=== PATIENT | male | born 1975 | race Caucasian/White ===

== ENCOUNTER 2024-03-07 17:43 | Inpatient (IN) | payer OTHER ==
[~2024-03-07] VITALS: Ht 177.8 cm; Wt 71.4 kg
[2024-03-08] MEDS ORDERED: Haloperidol Lactate Inj. 5 MG/ML Injection IM PRN (11:20)
[2024-03-08] MEDS ORDERED: Haloperidol 5 MG Tab PO PRN (11:20)
[2024-03-08] MEDS ORDERED: HydrOXYzine Pamoate 50 MG Cap PO PRN (11:20)
[2024-03-08] MEDS ORDERED: Ondansetron 4 MG SoluTab MM PRN (11:25)
[2024-03-08] MEDS ORDERED: Aluminum Hydroxide 320MG/5ML 473 ML PO PRN (11:25)
[2024-03-08] MEDS ORDERED: Ibuprofen 600 MG Tab PO PRN (11:25)
[2024-03-08] MEDS ORDERED: LORazepam 2 MG Tab PO PRN (11:25)
[2024-03-08] MEDS ORDERED: FLU VACC TS2024-25(6MOS UP)/PF 45 MCG/0.5 ML SYRINGE IM ONE (11:25)
[2024-03-08] MEDS ORDERED: LORazepam 2 MG/ML 1ML Injection IM PRN (11:25)
[2024-03-08] MEDS ORDERED: OLANZapine ODT 10 MG Tab MM PRN (11:25)
[2024-03-08] MEDS ORDERED: Polyethylene Glycol 3350 17 gm PO PRN (11:30)
[2024-03-08] MEDS ORDERED: DiphenhydrAMINE HCl 50 MG/ML 1ML Vial IV PRN (11:30)
[2024-03-08] MEDS ORDERED: DiphenhydrAMINE HCl 50 MG Cap PO PRN (11:30)
[2024-03-08] MEDS ORDERED: TraZODone HCl 50 MG Tab PO PRN (11:30)
[2024-03-08] MEDS ORDERED: Melatonin 3 MG Tab PO PRN (11:30)
[2024-03-08] MEDS ORDERED: Acetaminophen 325 MG TABLET PO PRN (11:30)
[2024-03-08] MEDS ORDERED: Calcium Carbonate 500 MG Tab Chew PO PRN (11:30)
[2024-03-08] MEDS ORDERED: AMLO5 PO (12:29)
[2024-03-08] MEDS ORDERED: OMEP20ER PO (12:29)
[2024-03-08] MEDS ORDERED: ONDA4ODT MM (12:30)
[2024-03-08] MEDS ORDERED: HYDCHL25 PO (12:31)
[2024-03-08] MEDS ORDERED: SERT50 PO (12:32)
[2024-03-08] MEDS ORDERED: HYDPAM50 PO (12:33)
[2024-03-08] MEDS ORDERED: TRAM50 PO (12:34)
[2024-03-08] MEDS ORDERED: METR500 PO (12:35)
[2024-03-08] MEDS ORDERED: CIPR500 PO (12:36)
[2024-03-08 12:57] VITALS: BP 137/106
[2024-03-08] MEDS ORDERED: TraMADol HCl 50 MG Tab PO PRN (14:55)
[2024-03-08] MEDS ORDERED: Ciprofloxacin 500 MG Tab PO SCH (21:00)
[2024-03-08] MEDS ORDERED: MetroNIDAZOLE 500 MG Tab PO SCH (21:00)
[2024-03-09] MEDS ORDERED: AmLODIPine Besylate 5 MG Tab PO SCH (09:00)
[2024-03-09] MEDS ORDERED: Multivitamins 1 Tab PO SCH (09:00)
[2024-03-09] MEDS ORDERED: Omeprazole 20 MG CapCR PO SCH (09:00)
[2024-03-09] MEDS ORDERED: Sertraline HCl 100 MG Tab PO SCH (09:00)
[2024-03-09] MEDS ORDERED: HydroCHLOROthiazide 25 mg Tab PO SCH (09:00)
[2024-03-09 12:09] VITALS: BP 131/106
[2024-03-09] MEDS ORDERED: AmLODIPine Besylate 5 MG Tab PO ONE (14:00)
[2024-03-09 19:15] VITALS: BP 140/106
[2024-03-09 21:28] VITALS: BP 132/98
[2024-03-10 08:10] VITALS: BP 137/103
[2024-03-10] MEDS ORDERED: AmLODIPine Besylate 5 MG Tab PO SCH (09:00)
[2024-03-10] MEDS ORDERED: Losartan Potassium 25 MG Tab PO SCH (21:00)
[2024-03-11 09:10] VITALS: BP 156/106
== END 2024-03-11 10:15 | disposition home or self-care (01) | DRG 882 ==
LOC: BHU 17:43
PROVIDERS: ADMIT Psychiatry & Neurology Psychiatry
DX: F43.12 Post-traumatic stress disorder, chronic (principal); R45.851 Suicidal ideations; I10 Essential (primary) hypertension; G89.29 Other chronic pain; M54.50 Low back pain, unspecified; M54.2 Cervicalgia; K21.9 Gastro-esophageal reflux disease without esophagitis; Z88.5 Allergy status to narcotic agent; Z88.8 Allergy status to other drugs, medicaments and biological substances; Z91.018 Allergy to other foods; Z79.891 Long term (current) use of opiate analgesic; Z79.2 Long term (current) use of antibiotics; Z87.19 Personal history of other diseases of the digestive system; Z63.0 Problems in relationship with spouse or partner
CPT/HCPCS: A9270